=== PATIENT | male | born 1995 | race Caucasian/White ===

== ENCOUNTER 2017-08-01 22:17 | Emergency (ER) | payer BC ==
[2017-08-01] MEDS ORDERED: NS 1,000 ML IV ONE ×2 (22:33)
--- NOTE | 2017-08-01 22:33 | EDPHY ---
H & P Time Seen by Provider: 08/01/17 22:33 HPI/ROS: HPI CHIEF COMPLAINT: Nausea, vomiting, diarrhea, fever, nonproductive cough, muscle aches and joint pain HISTORY OF PRESENT ILLNESS: This patient is a 22-year-old male, is otherwise healthy denies any significant medical history states for the past 48 hr he has not been feeling well. He reports that he had some nausea that started 2 days ago without vomiting and then noticed he developed a fever. States initially 101 however then it went up to 102 and now 103. He has been taking Tylenol. He denies any chest pain. Denies significant shortness of breath. He has had watery diarrhea. Additionally denies any significant abdominal pain but does endorse nausea. Denies stiff neck or severe headache. States due to the fever time of 103 decided come the emergency room. Past Medical History: Denies significant medical history Past Surgical History: Denies significant surgical history Social History: Denies daily use drugs alcohol tobacco. [employer] student. Family History: Noncontributory ROS REVIEW OF SYSTEMS: A comprehensive 10 point review of systems is otherwise negative aside from elements mentioned in the history of present illness. Exam Constitutional appears nontoxic no acute distress triage nursing summary reviewed, vital signs reviewed, awake/alert. Febrile at triage. Eyes normal conjunctivae and sclera, EOMI, PERRLA. HENT normal inspection, atraumatic, moist mucus membranes, no epistaxis, neck supple/ no meningismus, no raccoon eyes. Respiratory clear to auscultation bilaterally, normal breath sounds, no respiratory distress, no wheezing. Cardiovascular rate normal, regular rhythm, no murmur, no edema, distal pulses normal. Gastrointestinal soft, non-tender, no rebound, no guarding, normal bowel sounds, no distension, no pulsatile mass. Genitourinary no CVA tenderness. Musculoskeletal no midline vertebral tenderness, full range of motion, no calf swelling, no tenderness of extremities, no meningismus, good pulses, neurovascularly intact. Skin pink, warm, & dry, no rash, skin atraumatic. Neurologic no meningeal signs, supple neck, awake, alert and oriented x 3, AAOx3, moves all 4 extremities equally, motor intact, sensory intact, CN II-XII intact, normal cerebellar, normal vision, normal speech. Psychiatric normal mood/affect. Heme/Lymph/Immune no lymphadenopathy. Differential Diagnosis: Includes but is not limited to in a particular order acute febrile illness, viral syndrome, dehydration, electrolyte disturbance, influenza bacteremia, sepsis Medical Decision Making: Plan for this patient IV establishment blood draw, check influenza, two view chest x-ray to rule pneumonia, check urinalysis, lab work, IV hydration ibuprofen for fever control. Re-evaluate. Re-evaluation: 0126: Here in the emergency room the patient is resting comfortably no acute distress. He has received 2 L of fluid here and is well-hydrated, is fevers down with ibuprofen. He is feeling much better. I did reexamine his abdomen is soft nontender. He has no meningeal signs or stiff neck he denies any headache. I reviewed the patient's blood work and x-ray. The patient's chest x-ray shows no evidence of pneumonia. Blood cultures are pending. His urinalysis does not indicate any infection. His chemistry panel is appropriate. He is feeling much better and eager for discharge. I explained him I do not have a great reason for his fever however he should continue to stay well-hydrated drink lots of fluids alternate Tylenol Motri every 6-8 hours for fever and pain control. Additionally I discussed return precautions with him. He understands return to the emergency room if develops worsening fever vomiting or not feeling well. Low threshold for return he understands. I do feel comfortable allowing to go home. He appears well nontoxic. I reviewed his blood work x-ray and urine. No meningeal signs. Vital signs improved with fluids and antipyretics. Clinically given the muscle aches, fatigue, generalized weakness, nausea vomiting and diarrhea and a dry cough this most likely all viral. He understands return emergency room if there is worsening symptoms. Source: Patient, EMS Constitutional: Initial Vital Signs Temperature (C) 38.5 C H 08/01/17 22:32 Heart Rate 96 08/01/17 22:32 Respiratory Rate 18 08/01/17 22:32 Blood Pressure 156/101 H 08/01/17 22:32 O2 Sat (%) 93 08/01/17 22:32 O2 Delivery Mode Room Air Allergies/Adverse Reactions: No Known Allergies Allergy (Unverified 08/01/17 22:48) Home Medications: Medication Instructions Recorded valACYclovir 08/01/17 Medical Decision Making - Diagnostics Imaging Results: Imaging Impressions Chest X-Ray 08/01/17 22:33 Impression: No focal pneumonia. - Data Points Laboratory Results: Laboratory Results 08/01/17 22:40 08/01/17 22:40 08/01/17 08/01/17 08/01/17 23:55 23:45 22:55 WBC RBC Hgb Hct MCV MCH MCHC RDW Plt Count MPV Neut % (Auto) Lymph % (Auto) [place] % (Auto) Eos % (Auto) Baso % (Auto) Nucleat RBC Rel Count Absolute Neuts (auto) Absolute Lymphs (auto) Absolute Monos (auto) Absolute Eos (auto) Absolute Basos (auto) Absolute Nucleated RBC Immature Gran % Immature Gran # VBG Lactic Acid 1.6 mmol/L mmol/L (0.7-2.1) Sodium Potassium Chloride Carbon Dioxide Anion Gap BUN Creatinine Estimated GFR Glucose Calcium Total Bilirubin Conjugated Bilirubin Unconjugated Bilirubin AST ALT Alkaline Phosphatase Total Protein Albumin Lipase Urine Color PALE YELLOW Urine Appearance CLEAR Urine pH 6.0 (5.0-7.5) Ur Specific Jud 1.006 (1.002-1.030) Urine Protein NEGATIVE (NEGATIVE) Urine Ketones TRACE H (NEGATIVE) Urine Blood 1+ H (NEGATIVE) Urine Nitrate NEGATIVE (NEGATIVE) Urine Bilirubin NEGATIVE (NEGATIVE) Urine Urobilinogen NEGATIVE EU EU (0.2-1.0) Ur Leukocyte Esterase NEGATIVE (NEGATIVE) Urine RBC 1-3 /hpf /hpf (0-3) Urine WBC 1-3 /hpf /hpf (0-3) Ur Epithelial Cells TRACE /lpf /lpf (NONE-1+) Urine Glucose NEGATIVE (NEGATIVE) Nasal Influenza A PCR NEGATIVE FOR FLU A (NEGATIVE) Nasal Influenza B PCR NEGATIVE FOR FLU B (NEGATIVE) 08/01/17 08/01/17 22:40 22:40 WBC 8.19 10^3/uL 10^3/uL (3.80-9.50) RBC 5.12 10^6/uL 10^6/uL (4.40-6.38) Hgb 15.4 g/dL g/dL (13.7-17.5) Hct 43.8 % % (40.0-51.0) MCV 85.5 fL fL (81.5-99.8) MCH 30.1 pg pg (27.9-34.1) MCHC 35.2 g/dL g/dL (32.4-36.7) RDW 12.9 % % (11.5-15.2) Plt Count 165 10^3/uL 10^3/uL (150-400) MPV 10.5 fL fL (8.7-11.7) Neut % (Auto) 82.1 % H % (39.3-74.2) Lymph % (Auto) 8.8 % L % (15.0-45.0) [place] % (Auto) 8.8 % % (4.5-13.0) Eos % (Auto) 0.0 % L % (0.6-7.6) Baso % (Auto) 0.1 % L % (0.3-1.7) Nucleat RBC Rel Count 0.0 % % (0.0-0.2) Absolute Neuts (auto) 6.72 10^3/uL H 10^3/uL (1.70-6.50) Absolute Lymphs (auto) 0.72 10^3/uL L 10^3/uL (1.00-3.00) Absolute Monos (auto) 0.72 10^3/uL 10^3/uL (0.30-0.80) Absolute Eos (auto) 0.00 10^3/uL L 10^3/uL (0.03-0.40) Absolute Basos (auto) 0.01 10^3/uL L 10^3/uL (0.02-0.10) Absolute Nucleated RBC 0.00 10^3/uL 10^3/uL (0-0.01) Immature Gran % 0.2 % % (0.0-1.1) Immature Gran # 0.02 10^3/uL 10^3/uL (0.00-0.10) VBG Lactic Acid Sodium 132 mEq/L L mEq/L (135-145) Potassium 3.9 mEq/L mEq/L (3.3-5.0) Chloride 98 mEq/L mEq/L (97-110) Carbon Dioxide 21 mEq/l L mEq/l (22-31) Anion Gap 13 mEq/L mEq/L (8-16) BUN 9 mg/dL mg/dL (7-23) Creatinine 0.7 mg/dL mg/dL (0.7-1.3) Estimated GFR > 60 Glucose 126 mg/dL H mg/dL (70-100) Calcium 9.1 mg/dL mg/dL (8.5-10.4) Total Bilirubin 0.5 mg/dL mg/dL (0.1-1.4) Conjugated Bilirubin 0.4 mg/dL mg/dL (0.0-0.5) Unconjugated Bilirubin 0.1 mg/dL mg/dL (0.0-1.1) AST 32 IU/L IU/L (17-59) ALT 42 IU/L IU/L (21-72) Alkaline Phosphatase 49 IU/L IU/L (38-126) Total Protein 7.2 g/dL g/dL (6.3-8.2) Albumin 4.4 g/dL g/dL (3.5-5.0) Lipase 88 IU/L IU/L (23-300) Urine Color Urine Appearance Urine pH Ur Specific Jud Urine Protein Urine Ketones Urine Blood Urine Nitrate Urine Bilirubin Urine Urobilinogen Ur Leukocyte Esterase Urine RBC Urine WBC Ur Epithelial Cells Urine Glucose Nasal Influenza A PCR Nasal Influenza B PCR Medications Given: Discontinued Medications Sodium Chloride (Ns) 1,000 mls @ 0 mls/hr IV EDNOW ONE; Wide Open PRN Reason: Protocol Stop: 08/01/17 22:34 Last Admin: 08/01/17 22:42 Dose: 1,000 mls Sodium Chloride (Ns) 1,000 mls @ 0 mls/hr IV EDNOW ONE; Wide Open PRN Reason: Protocol Stop: 08/01/17 22:34 Last Admin: 08/01/17 22:42 Dose: 1,000 mls Ibuprofen (Motrin) 800 mg PO EDNOW ONE Stop: 08/01/17 22:38 Last Admin: 08/01/17 22:41 Dose: 800 mg Ondansetron HCl (Zofran) 4 mg IVP EDNOW ONE Stop: 08/01/17 22:35 Last Admin: 08/01/17 23:28 Dose: Not Given Departure - Departure Disposition: Home, Routine, Self-Care Clinical Impression: Viral syndrome Fever Qualifiers: Fever type: unspecified Qualified Code(s): R50.9 - Fever, unspecified Condition: Good Instructions: Fever in Adults (ED), Viral Syndrome (ED) Additional Instructions: 1. Drink lots of fluids stay well-hydrated. 2. You should alternate Tylenol Motrin every 6-8 hours. 3. Return emergency room if you continue to have high fever, vomiting or not feeling well. 4. If he develops any worsening symptoms including worsening abdominal pain return to the ER. Referrals: NONE *PRIMARY CARE P,. [Primary Care Provider] - As per Instructions
[2017-08-01] MEDS ORDERED: ONDANSETRON 4 MG/2 ML VIAL IVP ONE (22:34)
[2017-08-01] MEDS ORDERED: IBUPROFEN 800 MG TAB PO ONE (22:37)
[2017-08-01 22:48] LABS: PLATELET COUNT 165 10^3/uL (150-400)
[2017-08-02 01:33] VITALS: BP 148/68
== END 2017-08-02 01:33 | disposition home or self-care (01) ==
DX: B34.9 Viral infection, unspecified (principal); E86.9 Volume depletion, unspecified
CPT/HCPCS: J2405

== ENCOUNTER 2017-08-03 18:36 | Emergency (ER) | payer BC ==
[2017-08-03] MEDS ORDERED: ACETAMINOPHEN 500 MG TAB PO ONE (18:42)
[2017-08-03] MEDS ORDERED: NS 1,000 ML IV ONE ×2 (18:53)
[2017-08-03 19:13] LABS: PLATELET COUNT 146 10^3/uL (150-400)
--- NOTE | 2017-08-03 19:22 | EDPHY ---
H & P Time Seen by Provider: 08/03/17 18:50 HPI/ROS: HPI Nausea vomiting fever body aches. 22-year-old male by private vehicle with his girlfriend. This patient was seen in the emergency department on August 01 for the same complaints. This patient reports that a friend of his had a similar illness about 2 weeks ago. He reports that he was [place] on Friday night and ate fish and then the following developed an illness which she describes initially as watery diarrhea, nausea without vomiting, fever and body aches. He had an unremarkable workup during his emergency department visit on August 01. His venous lactate was within normal limits. His chest x-ray was unremarkable. He was negative for influenza by PCR testing. His chest x-ray was unremarkable as well. He presents back to the emergency department complaining of continued symptoms now with some intermittent nonbilious nonbloody vomiting. He reports having a high fever today and intermittent nonproductive cough. ROS: Constitutional: As above. No weakness. Eyes: No discharge. No changes in vision. ENT: No sore throat. No nasal congestion or rhinorrhea. Respiratory: As above. No shortness of breath. Cardiac: No chest pain, no palpitations. Gastrointestinal: No abdominal pain, as above. Genitourinary: No hematuria. No dysuria or increased frequency with urination. Musculoskeletal: No back pain. No neck pain. As above. Skin: No rashes. Neurological: No headache. No focal weakness or altered sensation. Past medical history: Past medical history includes asthma. Social history: Nonsmoker. No alcohol. Here with his girlfriend. Physical Exam: General Appearance: Alert, no distress. This patient is responding to questions appropriately and in full sentences. This patient appears well- hydrated and well-nourished. Eyes: Pupils equal and round no pallor or injection. No lid edema, erythema or injection. ENT, Mouth: Mucous membranes are moist. The pharyngeal tissues are mildly erythematous. No edema or swelling. No asymmetry suggestive of abscess. No exudates. Respiratory: There are no retractions, lungs are clear to auscultation with good air movement bilaterally. Cardiovascular: Regular rate and rhythm. No murmur. Gastrointestinal: Abdomen is soft and nontender, no masses, bowel sounds normal. No focal tenderness at McBurney's point. No Bowser sign. Neurological: Motor sensory function is grossly intact. Cranial nerves are normal. Gait is normal. Skin: Warm and dry, no rashes. Musculoskeletal: Neck is supple and nontender. No pain on flexion of his neck. No cervical, submental, submandibular lymphadenopathy. Extremities are symmetrical. All joints range without pain or impingement. Psychiatric: No agitation. No depression. Database: EKG: Imaging: Chest x-ray PA and lateral: No evidence of infiltrate. The cardiac mediastinal silhouette is unremarkable. No pneumothorax. No acute cardiopulmonary disease process. Interpreted by me. Procedures: Emergency department course: IV was placed. Vital signs reviewed. He is febrile and tachycardic. He was initially given a g of oral Tylenol. He was started on IV normal saline with 2 L to be given over the next 1-2 hours. He has no contraindications to NSAIDs. He was given 30 mg of IV Toradol for fever and muscle aches/joint aches. 8:45 p.m., patient re-evaluated. Resting comfortably at this time. States he feels much better. Results of his lab work and x-ray discussed with him. All is reassuring. No indication for antibiotics at this time. Dengue fever assay pending. He feels comfortable going home at this time and I feel he is safe for discharge. I will have him follow up with the [facility] on Friday for re-evaluation. Supportive care was discussed in detail with him and his girlfriend. Return to emergency department precautions thoroughly reviewed. All of their questions were answered. The patient was discharged home in good condition with his girlfriend. Differential Diagnosis: The differential diagnosis on this patient includes but is not limited to viral syndrome, food-borne illness. Meningitis, pneumonia, urinary tract infection, tick borne illness, other serious bacterial infection unlikely. This represents a partial list of diagnoses considered. These considerations are based on history, physical exam, past history, reassessment and diagnostic testing. Smoking Status: Current some day smoker Constitutional: Initial Vital Signs Temperature (C) 39.5 C H 08/03/17 18:40 Heart Rate 124 H 08/03/17 18:40 Respiratory Rate 20 08/03/17 18:40 Blood Pressure 131/71 H 08/03/17 18:40 O2 Sat (%) 92 08/03/17 18:40 O2 Delivery Mode Room Air Allergies/Adverse Reactions: No Known Allergies Allergy (Unverified 08/03/17 18:39) Home Medications: Medication Instructions Recorded valACYclovir 08/01/17 Medical Decision Making - Data Points Laboratory Results: Laboratory Results 08/03/17 19:03 08/03/17 19:03 Medications Given: Discontinued Medications Acetaminophen (Tylenol) 1,000 mg PO EDNOW ONE Stop: 08/03/17 18:43 Last Admin: 08/03/17 18:45 Dose: 1,000 mg Sodium Chloride (Ns) 1,000 mls @ 0 mls/hr IV ONCE ONE; Wide Open PRN Reason: Protocol Stop: 08/03/17 18:54 Last Admin: 08/03/17 19:06 Dose: 1,000 mls Sodium Chloride (Ns) 1,000 mls @ 0 mls/hr IV ONCE ONE; Wide Open PRN Reason: Protocol Stop: 08/03/17 18:54 Last Admin: 08/03/17 19:06 Dose: 1,000 mls Ketorolac Tromethamine (Toradol) 30 mg IVP EDNOW ONE Stop: 08/03/17 19:24 Last Admin: 08/03/17 19:24 Dose: 30 mg Departure - Departure Disposition: Home, Routine, Self-Care Clinical Impression: Fever, Viral syndrome Condition: Good Instructions: Fever in Adults (ED), Viral Syndrome (ED) Additional Instructions: Read and follow provided instructions. Follow-up with Dr. Neeraj Garcia or 1 of his partners with the [facility] on Friday for re-evaluation as discussed. You can start taking ibuprofen tomorrow. Ibuprofen dosin mg every 6 hours with meals for the next 3 days only. Take only as needed for pain and fever. Take medication as prescribed for nausea. Additionally you can take Tylenol as directed for fever control. Keep well hydrated. Drink lots of fluids. Return to the emergency department for worsening symptoms or other serious concerns. Referrals: [facility] (ED,. [Edm Groups for Call Sched] - As per Instructions
[2017-08-03] MEDS ORDERED: KETOROLAC 30 MG/1 ML SDV IVP ONE (19:23)
[2017-08-03 22:21] VITALS: BP 136/82
== END 2017-08-03 22:21 | disposition home or self-care (01) ==
DX: B34.9 Viral infection, unspecified (principal); J45.909 Unspecified asthma, uncomplicated; F17.200 Nicotine dependence, unspecified, uncomplicated; E86.9 Volume depletion, unspecified
CPT/HCPCS: 86790-90; 96374; J1885